=== PATIENT | female | born 1975 | race Caucasian/White ===

== ENCOUNTER → 2022-04-25 15:35 | Outpatient (CLI) | payer MEDICARE, BC, SELFPAY ==
--- NOTE | 2022-04-25 15:41 | DI.ECHO.S_ITS ---
[facility] +---------+ : : [address] : : : : [id number] : : : : Phone: [phone]---------+ Echocardiogram Report + + :Name: SIMBA HENDRICKSON Study Date: 04/25/2022 : :[facility] ReadingLocation: Weight: 95 lb : : Gender: Female : :: 1975 Age: 47 yrs BP: 117/67 mmHg: :Reason For Study: BRADYCARDIA : :Ordering Physician: KAUSHIK HERNANDEZ : :Kristin REARDON-Tatum Performed By: Heena Mendez : :Referring: KAUSHIK HERNANDEZ : + + Interpretation Summary The left ventricle is normal in size. Left ventricular systolic function appears normal without focal wall motion abnormalities. The ejection fraction is estimated to be 60-65%. Diastolic parameters suggest probable normal left ventricular diastolic function and normal filling pressures. The right ventricle is normal in size and function. The left atrial size is normal. Right atrial size is normal. There is no significant valvular heart disease. The aortic root is normal size. Procedure: A two-dimensional transthoracic echocardiogram with color flow and Doppler was performed. There is no prior echocardiogram noted for this patient. The study quality was technically adequate. The heart rate ranged between 45-70 bpm during the study. Left Ventricle: The left ventricle is normal in size. There is normal left ventricular wall thickness. Left ventricular systolic function appears normal without focal wall motion abnormalities. The ejection fraction is estimated to be 60-65%. Diastolic parameters suggest probable normal left ventricular diastolic function and normal filling pressures. Right Ventricle: The right ventricle is normal in size and function. Atria: The left atrial size is normal. Right atrial size is normal. There is no Doppler evidence for an interatrial shunt. Mitral Valve: There is a flat closure plane of the the mitral valve leaflets. There is trace mitral regurgitation. Aortic Valve: The aortic valve is trileaflet. The aortic valve opens well. There is no aortic valve stenosis. No aortic regurgitation is present. Tricuspid Valve: The tricuspid valve is normal in structure and function. There is trace tricuspid regurgitation. Pulmonic Valve: The pulmonic valve leaflets are thin and pliable; valve motion is normal. There is no pulmonic valvular regurgitation. There is no significant valvular heart disease. Great Vessels: The aortic root is normal size. The dimensions of the ascending aorta are normal. The IVC is of normal diameter and collapses greater than 50% with a sniff. This suggests a low right atrial pressure of 3 mm Hg. Pericardium/ Pleura There is no pericardial effusion. There is no pleural effusion. MMode/2D Measurements & Calculations LVIDd: 3.9 cm LVOT diam: 1.9 cm LVIDs: 2.5 cm Ao root diam: 2.5 cm FS: 36.0 % asc Aorta Diam: 2.5 cm IVSd: 0.65 cm Ao Arch Diam (Prox Trans): 1.8 cm LVPWd: 0.71 cm LA A2 area: 11.7 cm2 RA long axis: 3.3 cm LA A4 area: 11.3 cm2 RA area: 9.7 cm2 LA length (vol): 4.1 cm RA vol: 23.9 ml LA vol: 27.3 ml IVC diam: 1.6 cm RVD1 (basal): 3.4 cm RVD2 (mid): 3.6 cm TAPSE: 2.4 cm Doppler Measurements & Calculations Ao V2 max: 123.9 cm/sec LVOT Max Jeremías: 85.2 cm/sec Ao V2 mean: 85.9 cm/sec LV V1 max P.9 mmHg Ao max P.1 mmHg LV V1 VTI: 18.7 cm Ao mean P.3 mmHg CHING(I,D): 2.0 cm2 Ao V2 VTI: 27.5 cm CHING(V,D): 2.0 cm2 sev ratio: 0.68 MV E max jeremías: 120.7 cm/sec PA V2 max: 96.1 cm/sec MV A max jeremías: 70.1 cm/sec PA V2 mean: 66.9 cm/sec MV E/A: 1.7 PA mean P.1 mmHg Med Peak E' Jeremías: 11.0 cm/sec PA pr(Accel): 27.6 mmHg E/E' med: 11.0 Lat Peak E' Jeremías: 11.8 cm/sec E/E' lat: 10.2 E/e' average: 10.6 MV dec time: 0.26 sec SV(LVOT): 54.3 ml Reading Physician:07:00 PM
== END ==
PROVIDERS: Referring Provider Physician Assistant; Visit Provider Nurse Practitioner Family
DX: R00.1 Bradycardia, unspecified (principal)
CPT/HCPCS: 93306